=== PATIENT | female | born 1965 | race African-American/Black ===

== ENCOUNTER → 2017-03-20 | Outpatient (CLI) | payer OTHER | LOC: RAD 15:21 | DX: Z12.31 Encounter for screening mammogram for malignant neoplasm of breast (principal) ==

== ENCOUNTER → 2017-03-26 | Outpatient (CLI) | payer OTHER | LOC: ULTRA 09:43 | DX: N60.02 Solitary cyst of left breast (principal) ==

== ENCOUNTER → 2019-12-06 | Outpatient (CLI) | payer OTHER | LOC: RAD 11:14 | DX: Z12.31 Encounter for screening mammogram for malignant neoplasm of breast (principal) ==